=== PATIENT | male | born 1945 | race Caucasian/White ===

== ENCOUNTER 2018-08-09 01:48 | Emergency (ER) | payer SELFPAY ==
[~2018-08-09] VITALS: Ht 182.9 cm; Wt 117.9 kg
[2018-08-09 07:20] LABS: Basophils # (auto) 0.1 uL; Eosinophils # (auto) 0.4 uL; Eosinophils % (auto) 3.9 % (0.0-7.0); Hematocrit 37.2 % (41.0-53.0); Hemoglobin 12.6 g/dL (13.5-17.5); Lymphocytes # (auto) 1.7 uL; Mean Corpuscular Hemoglobin 29.7 pg (28.0-32.0); Mean Corpuscular Hgb Conc. 33.9 g/dL (32.0-36.0); Mean Corpuscular Volume 87.7 fL (80.0-100.0); Monocytes # (auto) 1.2 uL; Monocytes % (auto) 10.7 % (0.0-12.0); Neutrophils # (auto) 7.4 uL; Neutrophils % (auto) 68.4 % (37.0-80.0); Platelet Count (auto) 211 10^3/uL (140-450); Red Blood Cells 4.24 10^6/uL (4.5-5.90); Red Cell Distribution Width 13.6 % (11.8-14.3); White Blood Cell 10.8 10^3/uL (4.4-10.8)
[2018-08-09 07:42] LABS: Albumin 3.2 g/dL (3.4-5.0); Calcium 8.8 mg/dL (8.5-10.1); Potassium 4.1 mmol/L (3.5-5.1)
[2018-08-09 07:46] LABS: BUN/Creatinine Ratio 25.7; Bilirubin, Total 0.8 mg/dL (0.2-1.0); Total Protein 7.1 g/dL (6.4-8.2)
[2018-08-09 09:45] VITALS: BP 132/77
== END 2018-08-09 13:01 | disposition home or self-care (01) ==
LOC: ER 01:48 → EDBD 01:48 → ER 13:01
DX: R41.82 Altered mental status, unspecified (principal); M75.101 Unspecified rotator cuff tear or rupture of right shoulder, not specified as traumatic; T88.7XXA Unspecified adverse effect of drug or medicament, initial encounter; E11.9 Type 2 diabetes mellitus without complications; I10 Essential (primary) hypertension; Y92.89 Other specified places as the place of occurrence of the external cause; Z86.73 Personal history of transient ischemic attack (TIA), and cerebral infarction without residual deficits
CPT/HCPCS: 36415; 70450; 73030; 80053; 85025; 93005

== ENCOUNTER 2019-09-25 06:28 | Emergency (ER) | payer MEDICARE, OTHER ==
[~2019-09-25] VITALS: Ht 180.3 cm; Wt 104.3 kg
[2019-09-25] MEDS ORDERED: HYDROmorphone HCL 2 MG/ML VL IV ONE ×2 (08:00→15:00)
[2019-09-25] MEDS ORDERED: ONDANSETRON HCL 4 MG/2 ML VIAL IV ONE ×2 (08:00→15:00)
[2019-09-25] MEDS ORDERED: SODIUM CHLORIDE 0.9% 1,000 ML IV ONE (08:33)
[2019-09-25 09:30] LABS: Basophils # (auto) 0 uL; Basophils % (auto) 0.2 % (0.0-2.0); Eosinophils # (auto) 0 uL; Hemoglobin 12.7 g/dL (13.5-17.5); Lymphocytes # (auto) 1.1 uL; Lymphocytes % (auto) 8.1 % (10.0-50.0); Mean Corpuscular Hgb Conc. 33.5 g/dL (32.0-36.0); Mean Corpuscular Volume 86.5 fL (80.0-100.0); Monocytes # (auto) 1.2 uL; Monocytes % (auto) 8.8 % (0.0-12.0); Neutrophils # (auto) 11.4 uL; Neutrophils % (auto) 82.9 % (37.0-80.0); Platelet Count (auto) 145 10^3/uL (140-450); Red Cell Distribution Width 12.8 % (11.8-14.3); White Blood Cell 13.7 10^3/uL (4.4-10.8)
[2019-09-25 09:51] LABS: Albumin 3.6 g/dL (3.4-5.0); Anion Gap 6 (5-15); Blood Urea Nitrogen 14 mg/dL (7-18); Calcium 8.6 mg/dL (8.5-10.1); Carbon Dioxide 28 mmol/L (21-32); Chloride 103 mmol/L (98-107); Glucose 189 mg/dL (74-106); Potassium 3.5 mmol/L (3.5-5.1); Sodium 137 mmol/L (136-145)
[2019-09-25 09:58] LABS: Alanine Aminotransferase 27 U/L (16-61); Alkaline Phosphatase 48 U/L (45-117); Aspartate Aminotransferase 36 U/L (15-37); BUN/Creatinine Ratio 14.9; Bilirubin, Total 1.1 mg/dL (0.2-1.0); GFR African American 100 mL/min; GFR Non-African American 83 mL/min; Total Protein 7.4 g/dL (6.4-8.2)
[2019-09-25] MEDS ORDERED: PROMETHAZINE HCL 25 MG/ML 1ML IV ONE (10:45)
[2019-09-25] MEDS ORDERED: MORPHINE SULFATE 4 MG/ML SYR/VIAL IV ONE (10:45)
[2019-09-25] MEDS ORDERED: IOHEXOL 350 MG/ML 100ML IJ ONE (11:00)
[2019-09-25 14:52] VITALS: BP 134/72
== END 2019-09-25 15:03 | disposition short-term general hospital (02) ==
LOC: EDBD 06:28 → EDUNIT# 06:28 → ER 06:28
DX: M54.5 Low back pain (principal); M79.18 Myalgia, other site; G89.29 Other chronic pain; E11.9 Type 2 diabetes mellitus without complications; Z86.73 Personal history of transient ischemic attack (TIA), and cerebral infarction without residual deficits; Z98.890 Other specified postprocedural states
CPT/HCPCS: 36415; 71275; 80053; 84484; 85025; 96374; 96375; 96376; 99284; J1170; J2270; J2405; J2550; Q9967

== ENCOUNTER 2019-09-29 12:33 | Emergency (ER) | payer MEDICARE, OTHER ==
[~2019-09-29] VITALS: Ht 188 cm; Wt 108.9 kg
[2019-09-29 12:51] VITALS: BP 130/84
== END 2019-09-29 18:03 | disposition left against medical advice (07) ==
LOC: EDBD 12:33 → ER 12:39
DX: M25.561 Pain in right knee (principal); I48.91 Unspecified atrial fibrillation; E11.9 Type 2 diabetes mellitus without complications; E78.00 Pure hypercholesterolemia, unspecified; I10 Essential (primary) hypertension
CPT/HCPCS: 93971